=== PATIENT | female | born 1990 | race American Indian/Alaskan Native ===

== ENCOUNTER → 2017-08-25 | Outpatient (CLI) | payer OTHER | LOC: MC.RAD 10:00 | DX: O92.29 Other disorders of breast associated with pregnancy and the puerperium (principal); O92.79 Other disorders of lactation; Z3A.23 23 weeks gestation of pregnancy ==

== ENCOUNTER → 2017-10-13 | Outpatient (CLI) | payer OTHER | LOC: SUN.DIA 15:08 | DX: O24.419 Gestational diabetes mellitus in pregnancy, unspecified control (principal); Z3A.31 31 weeks gestation of pregnancy; Z71.3 Dietary counseling and surveillance | CPT/HCPCS: G0108 ==

== ENCOUNTER → 2017-10-28 | Outpatient (CLI) | payer OTHER | LOC: SUN.DIA 08:49 | DX: O24.419 Gestational diabetes mellitus in pregnancy, unspecified control (principal); Z3A.33 33 weeks gestation of pregnancy; Z71.3 Dietary counseling and surveillance | CPT/HCPCS: G0108 ==

== ENCOUNTER 2017-12-02 01:24 | Inpatient (IN) | payer OTHER ==
[~2017-12-02] VITALS: Ht 160 cm; Wt 69.5 kg
[2017-12-02] VITALS (22 sets, daily range): BP systolic 105–157; BP diastolic 54–88; PULSE 61–118; TEMP 97.8–98.2
[2017-12-02 02:34] LABS: BASO % 0.2 % (0.0-2.0); EOS % 0.3 % (0-4.0); GRAN # 8.8 (1.4-6.5); GRAN % 71.8 % (42.2-75.2); HEMATOCRIT 43.1 % (37.0-47.0); HEMOGLOBIN 15.2 g/dl (12.5-16.0); LYMPH # 2.8 (1.2-3.4); MEAN CELL VOLUME 87 fl (80.0-100.0); MEAN CORPUSCULAR HEMOGLOBIN 31 pg (27.0-31.0); MEAN CORPUSCULAR HGB CONC 35 g/dl (33.0-37.0); MEAN PLATELET VOLUME 11.8 fl (7.4-10.4); MONO # 0.5 (0.1-0.6); MONO % 4.3 % (1.7-9.3); PLATELET COUNT 157 K/mm3 (130-400); RED BLOOD COUNT 4.96 M/mm3 (4.10-5.30); REDCELL DISTRIBUTION WIDTH-CV 12.6 % (11.5-14.5)
[2017-12-02] MEDS ORDERED: PRENATAL MVI (02:34)
[2017-12-03 01:00] VITALS: BP 122/68; PULSE 78; TEMP 98.3
[2017-12-03 07:58] VITALS: BP 111/61; PULSE 71; TEMP 97.5
[2017-12-03 10:08] LABS: HEMATOCRIT 33.7 % (37.0-47.0); HEMOGLOBIN 11.4 g/dl (12.5-16.0)
[2017-12-03 16:00] VITALS: BP 121/73; PULSE 90; TEMP 98
[2017-12-03 19:15] VITALS: BP 131/74; PULSE 98
[2017-12-04 08:03] VITALS: BP 129/69; PULSE 73; TEMP 97.7
[2017-12-04 11:37] VITALS: BP 125/71; PULSE 102; TEMP 97.5
[2017-12-04 15:40] VITALS: BP 122/72; PULSE 84; TEMP 97.7
[2017-12-04 21:10] VITALS: BP 116/85; PULSE 85; TEMP 97.4
[2017-12-05 08:20] VITALS: BP 130/75; PULSE 104; TEMP 98.2
[2017-12-05] MEDS ORDERED: PERCOCET 325 MG1 TA2 PO (08:24)
[2017-12-05] MEDS ORDERED: MOTRIN 800800 MG/TAB PO (08:24)
[2017-12-05 21:25] VITALS: BP 133/84; PULSE 86; TEMP 98.4
[2017-12-06 07:45] VITALS: BP 120/83; PULSE 87; TEMP 98.6
[2017-12-06] MEDS ORDERED: PERCOCET 325 MG1 TA2 PO (11:02)
== END 2017-12-06 14:40 | disposition home or self-care (01) | DRG 766 ==
LOC: LDRO 01:24 → OB 02:12 → LDR 02:12 → OB 12:07
PROVIDERS: Obstetrics & Gynecology
PROC: 10D00Z1 Extraction of Products of Conception, Low, Open Approach (ICD-10-PCS; principal; 2017-12-02)
DX: O76 Abnormality in fetal heart rate and rhythm complicating labor and delivery (principal); Z3A.37 37 weeks gestation of pregnancy; Z37.0 Single live birth
CPT/HCPCS: J0690; J1885; J2175; J2370; J2405; J2590; J3010; J7120

== ENCOUNTER → 2018-01-14 | Outpatient (CLI) | payer OTHER ==
[~2018-01-14] MED LIST: MOTRIN 800800 MG/TAB PO; PERCOCET 325 MG1 TA2 PO; PRENATAL MVI
== END ==
LOC: OLC 13:01
DX: Z39.1 Encounter for care and examination of lactating mother (principal); Z71.89 Other specified counseling

== ENCOUNTER → 2018-09-23 | Outpatient (CLI) | payer OTHER | LOC: COL.RAD 14:02 | DX: R10.33 Periumbilical pain (principal) ==